=== PATIENT | male | born 2000 | race Caucasian/White ===

== ENCOUNTER 2019-04-20 21:02 | Emergency (ER) | payer MEDICAID ==
--- NOTE | 2019-04-20 21:13 | EDM.PDOC ---
ED HPI GENERAL MEDICAL PROBLEM - General Chief Complaint: ENT Problem Stated Complaint: throat pain Time Seen by Provider: 04/20/19 21:13 Source of Information: Reports: Patient. Denies: Old Records (No [facility] records available) History Limitations: Reports: No Limitations - History of Present Illness INITIAL COMMENTS - FREE TEXT/NARRATIVE: Patient walked into the emergency room for evaluation of 4/10 throat pain with symptoms starting at about 4:20 a.m. this morning he woke up. He denies any known exposure to infection, including strep or mono, however he does have a history of recurrent strep throat and distant mononucleosis. His previous strep infections have been treated without actual testing. Possible fever and chills earlier today with temperature not measured. He does have a history of nonspecific fatigue. The patient did take aspirin or ibuprofen earlier today and also has been gargling with saltwater. No recent history of abdominal pain, heartburn, nausea, diarrhea, melena, gross hematochezia, or any food intolerance , including fatty foods, etc.. The patient also denies any recent cough, wheezing, dyspnea, etc.. Onset: Today Onset Date: 04/20/19 Onset Time: 04:20 Duration: Constant, Getting Worse Location: Reports: Other (sore throat as above). Denies: Head, Face, Neck, Chest, Abdomen, Back, Radiates to Quality: Reports: Ache, Same as Previous Episode, Throbbing Severity: Mild Improves with: Reports: None Worsens with: Reports: None Context: Reports: Other (as above). Denies: Sick Contact, Trauma Associated Symptoms: Reports: Fever/Chills. 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 Denies: Allergic Rhinitis, Hard of Hearing, Impaired Vision, Retinal Detachment Other HEENT History: left eye strabismus as a child. Recurrent tonsillitis with 2 episodes per year since childhood. Cardiovascular History: Reports: None, Other (See Below). Denies: Aneurysm, Arrhythmia, Blood Clots/VTE/DVT, High Cholesterol, Hypertension, Syncope Other Cardiovascular History: He doesn't know his cholesterol status. Respiratory History: Reports: None. Denies: Asthma, Intubation, Previous, PE, Pneumothorax, Sleep Apnea Gastrointestinal History: Reports: Chronic Constipation. Denies: Celiac Disease , Gastritis, GERD, GI Bleed, Hepatitis, Inflammatory Bowel Disease, Irritable Bowel Syndrome, Jaundice, Pancreatitis Genitourinary History: Reports: None. Denies: Acute Renal Failure, Chronic Renal Insuffiency, Renal Calculus, STD, Urinary Incontinence, UTI, Recurrent Musculoskeletal History: Reports: Other (See Below). Denies: Arthritis, Back Pain, Chronic, Fracture, Gout, Neck Pain, Chronic, RA, SLE Other Musculoskeletal History: Flexor tendon laceration of digit #5 of the left hand at age 17 with repair as below.. Neurological History: Reports: Concussion, Head Trauma, Other (See Below). Denies: Headaches, Chronic, Migraines, Seizure Other Neuro History: head concussion at age 13. Psychiatric History: Reports: ADD, ADHD, Anxiety, Depression. Denies: Abuse, Victim of, Addiction, Psych Hospitalization(s), Suicide Attempt, Suicidal Ideation Endocrine/Metabolic History: Reports: None. Denies: Diabetes, Type I, Diabetes , Type II, Diabetes Mellitus, Type 3c, Hypothyroidism, IDDM Hematologic History: Denies: Anemia, Blood Transfusion(s), Iron Deficiency Immunologic History: Reports: None. Denies: AIDS, HIV, SLE Oncologic (Cancer) History: Reports: None. Denies: Basal Cell Carcinoma, Hodgkin's Lymphoma, Leukemia, Lymphoma, Malignant Melanoma, Non-Hodgkin's Lymphoma, Squamous Cell Carcinoma Dermatologic History: Reports: None. 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 Denies: C-Difficile, Chicken Pox, Measles, Meningitis , MRSA, Mumps, Pertussis (Whooping Cough), Rubella, Scarlet Fever, Shingles, TB , VRE - Past Surgical History Head Surgeries/Procedures: Reports: None HEENT Surgical History: Reports: None. Denies: Adenoidectomy, Detached Retina, Eye Surgery, Laser Surgery, LASIK, Myringotomy w Tube(s), Naso-Sinus Surgery, Oral Surgery, Tonsillectomy Cardiovascular Surgical History: Reports: None. Denies: Varicose Respiratory Surgical History: Reports: None. Denies: Thoracentesis GI Surgical History: Reports: None. Denies: Appendectomy, Cholecystectomy, Colonoscopy, EGD, Hernia, Abdominal, Hernia, Inguinal, Hernia Repair/Other Male Surgical History: Reports: Circumcision. Denies: Vasectomy Other Male Surgeries/Procedures: circumcision as an . Endocrine Surgical History: Reports: None. Denies: Thyroid Biopsy Neurological Surgical History: Reports: None. Denies: C-Spine, Discectomy, Laminectomy, Lumbar Spine, Sacral Spine, Spinal Fusion, Thoracic Spine Musculoskeletal Surgical History: Reports: Other (See Below). Denies: Arthroscopic Knee, Arthroscopic Procedure, Carpal Tunnel, Ganglion Cyst, Joint Replacement, ORIF, Shoulder Surgery Other Musculoskeletal Surgeries/Procedures:: left hand tendon repair at age 17 as above. Oncologic Surgical History: Reports: None Dermatological Surgical History: Reports: None - Past Imaging History Past Imaging History: Reports: CAT Scan (CT scan of the head at age 13.) Social & Family History - Family History Family Medical History: Unobtainable (patient adopted) Psychiatric: Reports: Anxiety, Depression, Other (See Below) Other Psychiatric Family History: mother from drug overdose at age 45. - Tobacco Use Tobacco Use Within Last Twelve Months: Other (See Below) (E- cigarettes) Years of Tobacco use: 2 Packs/Tins Daily Comment: Patient has been using E cigarettes since age 16. Used Tobacco, but Quit: No Smoking Cessation Information Provided To Patient: Yes Second Hand Smoke Exposure: No Second Hand Smoke Education Provided: No - Caffeine Use Caffeine Use: Reports: Soda (1 Soda per day). Denies: Coffee, Energy Drinks, Tea - Alcohol Use Alcohol Use History: Yes Days Per Week of Alcohol Use: 0 Number of Drinks Per Day: 12 Number of Drinks Per Day Comment: Usually whiskey. DWI at age 16 with no history of alcohol abuse or treatment. Total Drinks Per Week: 0 Alcohol Use Frequency: Binges - Recreational Drug Use Recreational Drug Use: Yes Drug Use in Last 12 Months: Yes Recreational Drug Type: Reports: Marijuana/Hashish (started at about age 16 with weekly use.). 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 ED EXAM, ENT - Physical Exam Exam: See Below Exam Limited By: No Limitations General Appearance: Alert, WD/WN, No Apparent Distress Eye Exam: Bilateral Eye: EOMI, Normal Inspection (no nystagmus), PERRL Ears: Normal External Exam, Normal Canal, Hearing Grossly Normal, Normal TMs Nose: Normal Inspection, Normal Mucousa, No Blood Mouth/Throat: Normal Gums, Normal Lips, Normal Teeth, Pharyngeal Erythema (+3), Throat Pain, Throat Swelling, Tonsillar Erythema (+3), Tonsillar Exudates ( moderate bilateral). No: Trismus, Uvular Deviation, Uvular Edema Head: Atraumatic, Normocephalic. No: Facial Tenderness, Sinus Tenderness Neck: Normal Inspection, Supple, Non-Tender, Full Range of Motion. No: Lymphadenopathy (L), Lymphadenopathy (R), Thyromegaly Respiratory/Chest: No Respiratory Distress, Lungs Clear, Normal Breath Sounds, No Accessory Muscle Use, Chest Non-Tender. No: Pleural Rub, Retractions Cardiovascular: Normal Peripheral Pulses, Regular Rate, Rhythm, No Edema, No Gallop, No JVD, No Murmur, No Rub. No: Gallop/S4, Other GI/Abdominal: Normal Bowel Sounds, Soft, Non-Tender, No Organomegaly, No Distention, No Abnormal Bruit, No Mass, Other (obese). No: Guarding (Male) Exam: Deferred Rectal (Males) Exam: Deferred Back: Normal Inspection, Full Range of Motion. No: CVA Tenderness (L), CVA Tenderness (R), Muscle Spasm Extremities: Normal Inspection, Normal Range of Motion, Non-Tender, No Pedal Edema, Normal Capillary Refill. No: Ferny's Sign Neurological: Alert, Oriented, CN II-XII Intact, Normal Cognition, Normal Gait, No Motor/Sensory Deficits Skin: Warm, Dry, Intact, Normal Color, No Rash. No: Diaphoretic, Rash, Wound/ Incision Lymphatic: No Adenopathy Course - Vital Signs Last Recorded V/S: Last Vital Signs Temp 37.6 C 04/20/19 21:06 Pulse 80 04/20/19 21:06 Resp 16 04/20/19 21:06 BP 124/71 04/20/19 21:06 Pulse Ox 100 04/20/19 21:06 Vital Signs - 24 hr 04/20/19 21:06 Temperature [ 37.6 C Oral] Pulse, 80 Peripheral [ Pulse Oximetry] Respiratory 16 Rate Blood Pressure 124/71 [Left Upper Arm ] O2 Sat by Pulse 100 Oximetry - Orders/Labs/Meds Orders: Active Orders 24 hr Category Date Time Status STREP SCRN A RAPID W CULT CONF [RM] Stat Lab 04/20/19 21:20 Results Obtain Past Medical Record [OM.PC] Routine Oth 04/20/19 21:13 Active Labs: Laboratory Tests 04/20/19 04/20/19 04/20/19 Range/Units 21:20 21:20 21:20 WBC 13.5 H (4.0-10.2) K/uL RBC 4.64 (4.33-5.41) M/uL Hgb 15.4 (13.1-16.8) g/dL Hct 44.4 (39.0-49.0) % MCV 95.7 (84.0-98.0) fL MCH 33.2 (28.2-33.3) pg MCHC 34.7 (31.7-36.0) g/dL RDW 12.4 (11.2-14.1) % Plt Count 160 (150-350) K/uL Neut % (Auto) 82.2 H (45.0-80.0) % Lymph % (Auto) 9.1 L (10.0-50.0) % Williamson % (Auto) 8.5 (2.0-14.0) % Eos % (Auto) 0.1 (0.0-5.0) % Baso % (Auto) 0.1 (0.0-2.0) % Neut # (Auto) 11.05 H (1.40-7.00) K/uL Lymph # (Auto) 1.23 (0.50-3.50) K/uL Williamson # (Auto) 1.15 H (0.00-1.00) K/uL Eos # (Auto) 0.01 (0.00-0.50) K/uL Baso # (Auto) 0.02 (0.00-0.20) K/uL Total Bilirubin 0.9 (0.2-1.0) mg/dL Direct Bilirubin 0.2 (0.0-0.2) mg/dL Indirect Bilirubin 0.7 AST 15 (15-37) U/L ALT 25 (12-78) U/L Alkaline Phosphatase 114 (46-116) IU/L Total Protein 7.5 (6.4-8.2) g/dL Albumin 4.3 (3.4-5.0) g/dL Globulin 3.2 Albumin/Globulin Ratio 1.34 Monoscreen Negative (NEGATIVE) Meds: Medications Discontinued Medications Generic Name Dose Route Start Last Admin Trade Name Freq PRN Reason Stop Dose Admin Amoxicillin/Clavulanate Potassium 1 tab 04/20/19 21:48 04/20/19 21:59 Augmentin 875 Mg/125 Mg PO 04/20/19 21:49 1 tab ONETIME ONE Administration - Radiology Interpretation Free Text/Narrative:: none Departure - Departure Time of Disposition: 22:10 Disposition: Home, Self-Care 01 Condition: Good Clinical Impression: Tonsillitis ADHD Qualifiers: Attention deficit-hyperactivity disorder type: unspecified Qualified Code(s): F90.9 - Attention-deficit hyperactivity disorder, unspecified type - Discharge Information *PRESCRIPTION DRUG MONITORING PROGRAM REVIEWED*: Not Applicable *COPY OF PRESCRIPTION DRUG MONITORING REPORT IN PATIENT MARIA E: Not Applicable Prescriptions: Amoxicillin/Potassium Clav [Augmentin 875-125 Tablet] 1 each PO BIDMEALS #20 tablet Instructions: Tonsillitis, [id number], What You Need to Know About Electronic Cigarettes Referrals: PCP,None [Primary Care Provider] - Forms: ED Department Discharge, ED Return to Work/School Form Additional Instructions: 1. Followup with your regular provider in 5-7 days as directed for reevaluation and repeat CBC. Bring these discharge instructions with you to that visit. 2. Tylenol 650 mg by mouth every 4 hours and/or OTC ibuprofen 2-3 tabs by mouth every 6 hours with food as directed./needed. You may stagger these medications for 48-72 hours only, which essentially means that you are receiving a pain medication about every 2 hours. 3. Listerine gargles four times per day, after meals and at bedtime, with additional Chloroseptic lozenges or spray as needed for 10 days and/or until symptoms resolve. 4. Work excuse- See Form 5. Discontinued E-cigarette use OVI as discussed. 6. Hygiene issues as discussed. 7. Immediately after this visit verify that your cellular telephone's voicemail has been activated and is empty. Also verify that your home telephone 's answering machine is operating properly and has space to receive messages. Note that it is sometimes necessary for us to be able to contact you at a later date to discuss your medical care. 8. Please remember that we are ALWAYS here for you and want to answer any questions you may have. Feel free to call the hospital any time and we call you back OVI. - Problem List & Annotations (1) Tonsillitis SNOMED Code(s): 98510942 Code(s): J03.90 - ACUTE TONSILLITIS, UNSPECIFIED Status: Acute Priority: High Current Visit: Yes Onset Date: 04/20/19 Annotation/Comment:: Negative strep and mono screens with strep culture pending. Secondary to leukocytosis Augmentin therapy was initiated in the emergency room. Otherwise symptomatic relief as per discharge instructions. Patient may need tonsillectomy in the future secondary to recurrent as above. Close follow-up by regular provider. He was counseled on discontinuing the cigarette use. (2) ADHD SNOMED Code(s): 549879166 Code(s): F90.9 - ATTENTION-DEFICIT HYPERACTIVITY DISORDER, UNSPECIFIED TYPE Status: Chronic Priority: Medium Current Visit: Yes Annotation/Comment: : Stable by history with no current medical therapy required. Qualifiers: Attention deficit-hyperactivity disorder type: unspecified Qualified Code(s ): F90.9 - Attention-deficit hyperactivity disorder, unspecified type - Problem List Review Problem List Initiated/Reviewed/Updated: Yes - My Orders Last 24 Hours: My Active Orders 04/20/19 21:13 Obtain Past Medical Record [OM.PC] Routine 04/20/19 21:20 STREP SCRN A RAPID W CULT CONF [RM] Stat - Assessment/Plan Last 24 Hours: My Active Orders 04/20/19 21:13 Obtain Past Medical Record [OM.PC] Routine 04/20/19 21:20 STREP SCRN A RAPID W CULT CONF [RM] Stat Assessment:: as above Plan: as above. Extensive precautions were given to the patient, who is in agreement with the treatment plan. See Patient Instructions for further treatment and plan.
[2019-04-20] MEDS ORDERED: Amoxicillin/Clavulanate K 875-125 MG Tab PO ONE (21:48)
== END 2019-04-20 22:10 | disposition home or self-care (01) ==
LOC: LL.ED 21:02
DX: J03.90 Acute tonsillitis, unspecified (principal); F90.9 Attention-deficit hyperactivity disorder, unspecified type
CPT/HCPCS: 36415; 80076; 85025; 86308; 87081; 87430; 99283; A9270